=== PATIENT | female | born 1960 | race Caucasian/White ===

== ENCOUNTER 2016-10-02 18:48 | Emergency (ER) | payer SELFPAY ==
[~2016-10-02] VITALS: Ht 152.4 cm; Wt 65.0 kg
[~2016-10-02 18:48] MED LIST: ASPI-1035 PO; ATOR10TA PO; HYDR-3511 PO; INSULIN; LOSA25TA3 PO
[2016-10-02 23:52] VITALS: BP 162/93
[2016-10-03] MEDS ORDERED: ACETAMINOPHEN WITH CODEINE 300/30MG TABLET PO ONE
== END 2016-10-03 00:40 | disposition home or self-care (01) ==
LOC: ER 18:48
DX: S09.90XA Unspecified injury of head, initial encounter (principal); I10 Essential (primary) hypertension; E78.00 Pure hypercholesterolemia, unspecified; E11.9 Type 2 diabetes mellitus without complications; Z88.7 Allergy status to serum and vaccine; Z79.82 Long term (current) use of aspirin; Z79.4 Long term (current) use of insulin; Z79.899 Other long term (current) drug therapy; Z90.49 Acquired absence of other specified parts of digestive tract; Z82.49 Family history of ischemic heart disease and other diseases of the circulatory system; Z83.3 Family history of diabetes mellitus; W18.2XXA Fall in (into) shower or empty bathtub, initial encounter; Y93.89 Activity, other specified; Y92.091 Bathroom in other non-institutional residence as the place of occurrence of the external cause; Y99.8 Other external cause status
CPT/HCPCS: 70450; 93005; 99284

== ENCOUNTER 2017-04-19 18:35 | Inpatient (IN) | payer SELFPAY ==
[~2017-04-19] VITALS: Ht 304.8 cm; Wt 64.9 kg
[~2017-04-19 18:35] MED LIST changes: -ASPI-1035 PO; +ASPI-1159 PO
[2017-04-19 19:29] LABS: BASOPHILS % 0.2 % (0.0-2.0); HEMOGLOBIN. 12.4 g/dL (12.0-16.0); LYMPHOCYTES % 34.3 % (20.0-50.0); MEAN CORPUSCULAR HEMOGLOBIN 30.2 pg (28.0-32.0); MEAN CORPUSCULAR VOLUME 87.3 fL (81.0-99.0); MEAN PLATELET VOLUME 8.6 fl (7.4-10.4); MONOCYTES % 5.3 % (2.0-8.0); NEUTROPHILS % 59.2 % (40.0-76.0); PLATELET 293 x1000/uL (130-400); RED BLOOD CELL COUNT 4.12 mill/uL (4.2-5.4); RED CELL DISTRIBUTION WIDTH 12.8 % (11.6-14.6)
[2017-04-19 19:34] LABS: INR 0.9; PROTHROMBIN TIME 9.5 sec (9.4-11.6)
[2017-04-19 19:35] LABS: CHLORIDE 104 mEq/L (98-107)
[2017-04-19 19:41] LABS: CARBON DIOXIDE 26 mEq/L (21-32); ETHANOL BLOOD < 10 mg/dL
[2017-04-19 19:45] LABS: TROPONIN I < 0.02 ng/mL (0.00-0.04)
[2017-04-19] MEDS ORDERED: HYDRALAZINE 20MG/ML VIAL IV ONE (19:45)
[2017-04-19] MEDS ORDERED: LABETALOL 5MG/ML SYR 20 MG/4 ML SYRINGE IV ONE ×3 (19:45→21:15)
[2017-04-19] MEDS ORDERED: ASPIRIN 325MG TABLET PO NR (20:30)
[2017-04-19 20:51] LABS: CLARITY URINE CLEAR (CLEAR); COLOR URINE YELLOW (YELLOW); GLUCOSE URINE NEGATIVE (NEGATIVE); KETONES URINE NEGATIVE (NEGATIVE); LEUKOCYTE ESTERASE URINE TRACE (NEGATIVE); NITRITE URINE NEGATIVE (NEGATIVE); OCCULT BLOOD URINE NEGATIVE (NEGATIVE); PROTEIN URINE TRACE (NEGATIVE); SPECIFIC GRAVITY URINE 1.008 (1.005-1.030); UROBILINOGEN URINE 0.2 E.U./dL (0.2-1.0)
[2017-04-19 21:02] LABS: *AMPHETAMINES SCREEN URINE NEGATIVE (NEGATIVE); *BARBITURATES SCREEN URINE NEGATIVE (NEGATIVE); *BENZODIAZEPINES SCREEN URINE NEGATIVE (NEGATIVE); *COCAINE SCREEN URINE NEGATIVE (NEGATIVE); CANNABINOID URINE SCREEN NEGATIVE (NEGATIVE); METHADONE URINE SCREEN NEGATIVE (NEGATIVE); OPIATES URINE SCREEN NEGATIVE (NEGATIVE); PHENCYCLIDINE URINE SCREEN NEGATIVE (NEGATIVE)
[2017-04-19] MEDS ORDERED: NICARDIPINE 40MG/200ML PREMIX 200 ML IV STA ×2 (21:06→21:12)
[2017-04-19] MEDS ORDERED: ALTEPLASE IV NR (21:20)
[2017-04-19] MEDS ORDERED: SODIUM CHLORIDE 0.9% IV NR (21:20)
[2017-04-19] MEDS ORDERED: SODIUM CHLORIDE 0.9% IV STA (21:34)
[2017-04-19] MEDS ORDERED: ALTEPLASE IV STA (21:34)
[2017-04-19] MEDS ORDERED: ALTEPLASE 100MG/VIAL IV ONE (21:45)
[2017-04-19] MEDS ORDERED: TRAMADOL 50MG TABLET PO PRN (22:00)
[2017-04-19] MEDS ORDERED: NITROGLYCERIN 0.4MG TABLET SL SL PRN (22:00)
[2017-04-19] MEDS ORDERED: DOCUSATE SODIUM 100MG CAPSULE PO PRN (22:00)
[2017-04-19] MEDS ORDERED: MAGNESIUM/ALUMINUM HYDROXIDE/SIMETHICONE 30ML UDC PO PRN (22:00)
[2017-04-19] MEDS ORDERED: ACETAMINOPHEN 325MG TABLET PO PRN (22:00)
[2017-04-19] MEDS ORDERED: NA PHOS,M-B/NA PHOS,DI-BA ENEMA 118ML PR PRN (22:00)
[2017-04-19] MEDS ORDERED: MORPHINE SULFATE 2 MG/ML CPJ (NOT FOR IM USE) IV PRN (22:00)
[2017-04-19] MEDS ORDERED: CLONIDINE 0.1MG TABLET PO PRN (22:00)
[2017-04-19] MEDS ORDERED: IPRATROPIUM/ALBUTEROL 0.5-3(2.5)MG/3ML NEB INH PRN (22:00)
[2017-04-19] MEDS ORDERED: ONDANSETRON HCL 4MG/2ML VIAL IV PRN (22:00)
[2017-04-19] MEDS ORDERED: DIPHENHYDRAMINE 50MG/ML VIAL IV PRN (22:00)
[2017-04-19] MEDS ORDERED: IOHEXOL-350 100 ML BOTTLE ONE (22:11)
[2017-04-20] VITALS (42 sets, daily range): BP systolic 113–159; BP diastolic 58–94
[2017-04-20] MEDS: ASPIRIN 325MG EC TABLET PO SCH (09:45)
[2017-04-20] MEDS: PANTOPRAZOLE SODIUM 40 MG/VIAL IV SCH (09:45)
[2017-04-20] MEDS ORDERED: DEXTROSE 50% WATER 50ML SYRINGE IV PRN (11:00)
[2017-04-20] MEDS: BLOOD SUGAR DIAGNOSTIC STRIP TEST SCH ×3 (11:39→21:00)
[2017-04-20] MEDS: INSULIN LISPRO 100 UNITS/ML SUBCUT SCH ×3 (12:56→20:47)
[2017-04-20] MEDS: ATORVASTATIN CALCIUM 40MG TABLET PO SCH (20:47)
[2017-04-21] VITALS (42 sets, daily range): BP systolic 92–165; BP diastolic 54–120
[2017-04-21] MEDS: INSULIN LISPRO 100 UNITS/ML SUBCUT SCH ×4 (06:28→21:18)
[2017-04-21] MEDS: BLOOD SUGAR DIAGNOSTIC STRIP TEST SCH ×4 (07:22→21:16)
[2017-04-21] MEDS: ASPIRIN 325MG EC TABLET PO SCH (08:44)
[2017-04-21] MEDS: PANTOPRAZOLE SODIUM 40 MG/VIAL IV SCH (08:44)
[2017-04-21] MEDS: AMLODIPINE 5MG TABLET PO SCH (15:59)
[2017-04-21] MEDS: LOSARTAN POTASSIUM 100 MG TABLET PO SCH (15:59)
[2017-04-21] MEDS: ATORVASTATIN CALCIUM 40MG TABLET PO SCH (21:18)
[2017-04-22] VITALS (21 sets, daily range): BP systolic 108–164; BP diastolic 48–99
[2017-04-22] MEDS: BLOOD SUGAR DIAGNOSTIC STRIP TEST SCH ×4 (06:23→20:34)
[2017-04-22] MEDS: INSULIN LISPRO 100 UNITS/ML SUBCUT SCH ×4 (06:26→20:35)
[2017-04-22] MEDS: LOSARTAN POTASSIUM 100 MG TABLET PO SCH (08:18)
[2017-04-22] MEDS: ASPIRIN 325MG EC TABLET PO SCH (08:18)
[2017-04-22] MEDS: AMLODIPINE 5MG TABLET PO SCH (08:18)
[2017-04-22] MEDS: PANTOPRAZOLE SODIUM 40 MG/VIAL IV SCH (08:19)
[2017-04-22] MEDS: INSULIN DETEMIR UD 100 UNITS/ML SYR SUBCUT SCH (11:43)
[2017-04-22] MEDS: ATORVASTATIN CALCIUM 40MG TABLET PO SCH (20:34)
[2017-04-23] VITALS: BP 129/55
[2017-04-23 04:00] VITALS: BP 124/66
[2017-04-23] MEDS: BLOOD SUGAR DIAGNOSTIC STRIP TEST SCH ×2 (07:23→11:44)
[2017-04-23 08:00] VITALS: BP 126/78
[2017-04-23] MEDS: INSULIN LISPRO 100 UNITS/ML SUBCUT SCH ×2 (08:43→11:47)
[2017-04-23] MEDS: LOSARTAN POTASSIUM 100 MG TABLET PO SCH (09:31)
[2017-04-23] MEDS: PANTOPRAZOLE SODIUM 40 MG/VIAL IV SCH (09:31)
[2017-04-23] MEDS: AMLODIPINE 5MG TABLET PO SCH (09:32)
[2017-04-23] MEDS: ASPIRIN 325MG EC TABLET PO SCH (09:32)
[2017-04-23] MEDS: INSULIN DETEMIR UD 100 UNITS/ML SYR SUBCUT SCH (10:32)
[2017-04-23 11:18] VITALS: BP 126/75
== END 2017-04-23 12:16 | disposition home or self-care (01) | DRG 199 ==
LOC: ER 18:35 → MICUSO 19:01 → EDBEDREQ 21:26 → EDBEDREQSVC 21:26 → ENRESERV 04-20 02:04 → 7WST 04-22 15:37
PROVIDERS: ADMIT Internal Medicine; ATTEND Internal Medicine
DX: I10 Essential (primary) hypertension (principal); E11.9 Type 2 diabetes mellitus without complications; E78.00 Pure hypercholesterolemia, unspecified; Z79.4 Long term (current) use of insulin; Z82.49 Family history of ischemic heart disease and other diseases of the circulatory system; Z83.3 Family history of diabetes mellitus; Z86.73 Personal history of transient ischemic attack (TIA), and cerebral infarction without residual deficits; Z88.8 Allergy status to other drugs, medicaments and biological substances; Z88.7 Allergy status to serum and vaccine; Z79.82 Long term (current) use of aspirin; Z79.899 Other long term (current) drug therapy; Z79.1 Long term (current) use of non-steroidal anti-inflammatories (NSAID); Z90.49 Acquired absence of other specified parts of digestive tract
CPT/HCPCS: 36415; 70450; 70496; 70551; 71010; 80053; 80061; 80305; 81001; 82962; 83036; 84484; 85025; 85610; 93005; 93306; 93880; 97162; 97166; C9113; G0482; J1815; J2997; J3490; J7050; Q9967

== ENCOUNTER 2018-11-02 00:48 | Inpatient (IN) | payer OTHER, MEDICAID ==
[~2018-11-02] VITALS: Ht 154.9 cm; Wt 69.9 kg
[~2018-11-02 00:48] MED LIST changes: -HYDR-3511 PO
[2018-11-02] MEDS ORDERED: MORPHINE SULFATE 4 MG/ML CPJ (NOT FOR IM USE) IV STA (01:25)
[2018-11-02] MEDS ORDERED: ONDANSETRON HCL 4MG/2ML INJ IV STA (01:25)
[2018-11-02] MEDS ORDERED: ASPIRIN 325MG EC TABLET PO ONE (01:30)
[2018-11-02] MEDS: NITROGLYCERIN 0.4MG TABLET SL SL PRN ×2 (01:41→01:48)
[2018-11-02 02:27] LABS: CHLORIDE 106 mEq/L (98-107)
[2018-11-02 02:34] LABS: BASOPHILS % 0.4 % (0.0-2.0); EOSINOPHILS % 0.3 % (0.0-5.0); HEMATOCRIT. 32.4 % (36.0-48.0); HEMOGLOBIN. 11.1 g/dL (12.0-16.0); LYMPHOCYTES % 22.2 % (20.0-50.0); MEAN CORPUSCULAR HEMOGLOBIN 29.4 pg (28.0-32.0); MEAN CORPUSCULAR VOLUME 85.8 fL (81.0-99.0); MEAN PLATELET VOLUME 8.5 fl (7.4-10.4); NEUTROPHILS % 73.1 % (40.0-76.0); PLATELET 323 x1000/uL (130-400); RED BLOOD CELL COUNT 3.77 mill/uL (4.2-5.4); RED CELL DISTRIBUTION WIDTH 13.3 % (11.6-14.6)
[2018-11-02 05:45] LABS: CLARITY URINE CLEAR (CLEAR); COLOR URINE YELLOW (YELLOW); KETONES URINE NEGATIVE (NEGATIVE); LEUKOCYTE ESTERASE URINE NEGATIVE (NEGATIVE); NITRITE URINE NEGATIVE (NEGATIVE); OCCULT BLOOD URINE NEGATIVE (NEGATIVE); PROTEIN URINE 1+ (NEGATIVE); SPECIFIC GRAVITY URINE 1.014 (1.005-1.030); UROBILINOGEN URINE 0.2 E.U./dL (0.2-1.0)
[2018-11-02] MEDS ORDERED: DEXTROSE 50% WATER 50ML SYRINGE IV PRN (08:30)
[2018-11-02] MEDS ORDERED: ACETAMINOPHEN 325MG TABLET PO PRN (08:30)
[2018-11-02] MEDS ORDERED: ONDANSETRON HCL 4MG/2ML INJ IV PRN (08:30)
[2018-11-02] MEDS: BLOOD SUGAR DIAGNOSTIC STRIP TEST SCH ×4 (08:44→21:26)
[2018-11-02 09:20] VITALS: BP 168/72
[2018-11-02] MEDS ORDERED: INSHUMSS SUBCUT (09:42)
[2018-11-02] MEDS ORDERED: LEVVL SQ (09:42)
[2018-11-02] MEDS ORDERED: VANCOMYCIN 1500MG in DEXTROSE 5% WATER 250ML IV SCH (10:00)
[2018-11-02] MEDS: ASPIRIN 81MG TABLET PO SCH (10:06)
[2018-11-02] MEDS: METOPROLOL TARTRATE 50MG TABLET PO SCH ×2 (10:06→21:26)
[2018-11-02 10:18] LABS: LDL CHOLESTEROL 146 mg/dL (5-100)
[2018-11-02 10:19] LABS: HDL CHOLESTEROL 49 mg/dL (40-59)
[2018-11-02] MEDS: PIPERACILLIN/TAZ 3.375G PREMIX 50 ML IV SCH ×3 (11:46→21:26)
[2018-11-02 12:32] VITALS: BP 101/57
[2018-11-02] MEDS: ENOXAPARIN 40MG/0.4ML SYR SUBCUT SCH (13:26)
[2018-11-02] MEDS: INSULIN LISPRO 100 UNITS/ML SUBCUT SCH ×3 (13:29→21:32)
[2018-11-02] MEDS ORDERED: TRAMADOL 50MG TABLET PO PRN (14:00)
[2018-11-02 16:27] VITALS: BP 123/59
[2018-11-02 20:00] VITALS: BP 117/67
[2018-11-02] MEDS: ATORVASTATIN CALCIUM 40MG TABLET PO SCH (21:25)
[2018-11-02] MEDS ORDERED: VANCOMYCIN 750 MG PREMIX 150 ML IV SCH (22:00)
[2018-11-02] MEDS: VANCOMYCIN 1 G PREMIX 200 ML IV SCH (22:03)
[2018-11-03] VITALS: BP 106/57
[2018-11-03 04:00] VITALS: BP 125/63
[2018-11-03] MEDS: PIPERACILLIN/TAZ 3.375G PREMIX 50 ML IV SCH ×3 (04:51→18:12)
[2018-11-03] MEDS: BLOOD SUGAR DIAGNOSTIC STRIP TEST SCH ×4 (06:01→21:17)
[2018-11-03 06:36] LABS: BASOPHILS % 0.4 % (0.0-2.0); EOSINOPHILS % 2.1 % (0.0-5.0); HEMATOCRIT. 32.3 % (36.0-48.0); LYMPHOCYTES % 35.9 % (20.0-50.0); MEAN CORPUSCULAR HEMOGLOBIN 29.9 pg (28.0-32.0); MEAN CORPUSCULAR VOLUME 87.5 fL (81.0-99.0); MEAN PLATELET VOLUME 8.3 fl (7.4-10.4); MONOCYTES % 5.8 % (2.0-8.0); NEUTROPHILS % 55.8 % (40.0-76.0); PLATELET 281 x1000/uL (130-400); RED BLOOD CELL COUNT 3.69 mill/uL (4.2-5.4); RED CELL DISTRIBUTION WIDTH 13.4 % (11.6-14.6)
[2018-11-03 07:15] LABS: CHLORIDE 107 mEq/L (98-107)
[2018-11-03 08:02] VITALS: BP 129/65
[2018-11-03] MEDS: METOPROLOL TARTRATE 50MG TABLET PO SCH ×2 (09:39→21:17)
[2018-11-03] MEDS: ENOXAPARIN 40MG/0.4ML SYR SUBCUT SCH (09:39)
[2018-11-03] MEDS: ASPIRIN 81MG TABLET PO SCH (09:39)
[2018-11-03] MEDS: VANCOMYCIN 1 G PREMIX 200 ML IV SCH ×2 (09:40→21:20)
[2018-11-03] MEDS: INSULIN LISPRO 100 UNITS/ML SUBCUT SCH ×4 (09:44→21:38)
[2018-11-03 12:00] VITALS: BP 122/61
[2018-11-03] MEDS ORDERED: MAGNESIUM HYDROXIDE 400MG/5ML 30ML UDC PO PRN (14:30)
[2018-11-03] MEDS ORDERED: CLONIDINE 0.1MG TABLET PO PRN (14:45)
[2018-11-03] MEDS ORDERED: CLONIDINE 0.2MG TABLET PO PRN (14:45)
[2018-11-03 16:06] VITALS: BP 110/50
[2018-11-03] MEDS: DOCUSATE SODIUM 100MG CAPSULE PO SCH (18:12)
[2018-11-03 20:00] VITALS: BP 118/70
[2018-11-03] MEDS: ATORVASTATIN CALCIUM 40MG TABLET PO SCH (21:17)
[2018-11-04] VITALS: BP 121/63
[2018-11-04] MEDS: PIPERACILLIN/TAZ 3.375G PREMIX 50 ML IV SCH ×3 (00:06→15:19)
[2018-11-04 04:00] VITALS: BP 118/65
[2018-11-04] MEDS: BLOOD SUGAR DIAGNOSTIC STRIP TEST SCH ×2 (05:44→12:40)
[2018-11-04 06:30] LABS: BASOPHILS % 0.7 % (0.0-2.0); EOSINOPHILS % 1.7 % (0.0-5.0); HEMATOCRIT. 31.3 % (36.0-48.0); HEMOGLOBIN. 10.7 g/dL (12.0-16.0); LYMPHOCYTES % 39.8 % (20.0-50.0); MEAN CORPUSCULAR HEMOGLOBIN 29.7 pg (28.0-32.0); MEAN CORPUSCULAR VOLUME 86.9 fL (81.0-99.0); MEAN PLATELET VOLUME 8.7 fl (7.4-10.4); MONOCYTES % 5.6 % (2.0-8.0); NEUTROPHILS % 52.2 % (40.0-76.0); PLATELET 282 x1000/uL (130-400); RED CELL DISTRIBUTION WIDTH 13.2 % (11.6-14.6)
[2018-11-04 06:52] LABS: CHLORIDE 108 mEq/L (98-107)
[2018-11-04 07:04] LABS: CREATINE KINASE 70 IU/L (26-192)
[2018-11-04 07:06] LABS: CREATINE KINASE MB FRACTION < 1.0 ng/mL (0.5-3.6)
[2018-11-04 08:00] VITALS: BP 137/54
[2018-11-04] MEDS: INSULIN LISPRO 100 UNITS/ML SUBCUT SCH ×2 (08:10→15:19)
[2018-11-04] MEDS: METOPROLOL TARTRATE 50MG TABLET PO SCH (09:00)
[2018-11-04] MEDS: ASPIRIN 81MG TABLET PO SCH (09:00)
[2018-11-04] MEDS: DOCUSATE SODIUM 100MG CAPSULE PO SCH (09:00)
[2018-11-04] MEDS: ENOXAPARIN 40MG/0.4ML SYR SUBCUT SCH (09:00)
[2018-11-04] MEDS: VANCOMYCIN 1 G PREMIX 200 ML IV SCH (09:00)
[2018-11-04] MEDS ORDERED: REGADENOSON 0.4 MG/5 ML IV NR (11:45)
[2018-11-04 12:00] VITALS: BP 125/50
[2018-11-04] MEDS ORDERED: REGADENOSON 0.4 MG/5 ML IV ONE (13:34)
[2018-11-04 16:00] VITALS: BP 136/60
[2018-11-04 16:15] VITALS: BP 136/60
[2018-11-04] MEDS ORDERED: VANCOMYCIN 750 MG PREMIX 150 ML IV SCH (21:00)
== END 2018-11-04 16:55 | disposition home or self-care (01) | DRG 203 ==
LOC: ER 00:48 → 7WST 04:16 → EDBEDREQTM 04:20 → EDBEDREQ 04:20 → ENRESERV 07:17
PROVIDERS: ADMIT Internal Medicine Nephrology; ATTEND Internal Medicine Nephrology
DX: R07.89 Other chest pain (principal); E11.40 Type 2 diabetes mellitus with diabetic neuropathy, unspecified; E44.1 Mild protein-calorie malnutrition; I69.354 Hemiplegia and hemiparesis following cerebral infarction affecting left non-dominant side; E78.5 Hyperlipidemia, unspecified; I10 Essential (primary) hypertension; D72.829 Elevated white blood cell count, unspecified; M19.012 Primary osteoarthritis, left shoulder; E78.00 Pure hypercholesterolemia, unspecified; I45.10 Unspecified right bundle-branch block; Z82.49 Family history of ischemic heart disease and other diseases of the circulatory system; Z83.3 Family history of diabetes mellitus; Z90.49 Acquired absence of other specified parts of digestive tract
CPT/HCPCS: 36415; 70551; 71045; 73030; 78452; 80048; 80061; 80202; 82550; 82553; 82962; 83880; 84145; 84443; 84484; 85379; 93005; 93017; 93306; 93880; 93970; 96374; 96375; 97162; 97166; 99285; A9500; J1650; J1815; J2270; J2405; J2543; J2785; J3370; J7040; J7060

== ENCOUNTER 2019-07-20 23:17 | Emergency (ER) | payer SELFPAY ==
[~2019-07-20] VITALS: Ht 162.6 cm; Wt 60.0 kg
[~2019-07-20 23:17] MED LIST changes: -ASPI-1159 PO; +ASPI-1497 PO; +INSHUMSS SUBCUT; -INSULIN; +LEVVL SQ
[2019-07-21 00:12] VITALS: BP 190/99
== END 2019-07-21 06:17 | disposition left against medical advice (07) ==
LOC: ER 23:17
DX: Z53.21 Procedure and treatment not carried out due to patient leaving prior to being seen by health care provider (principal)